=== PATIENT | female | born 1935 | race Hispanic/Latino ===

== ENCOUNTER 2017-11-25 12:42 | Emergency (ER) | payer MEDICARE ==
[2017-11-25 13:04] VITALS: RESP 18; TEMP 97.5; O2SAT 97
--- NOTE | 2017-11-25 14:34 | ED PDOC ---
HPI: Trauma/Fall - HPI Time Seen by Provider: 11/25/17 13:25 Chief Complaint (Nursing): Rib Injury Chief Complaint (Provider): Rib Injury History Per: Patient History/Exam Limitations: no limitations Injury Occurred (Timing): Days Ago: (x6) Additional Complaint(s): 81 year old female with medical history of hypertension and diabetes, presents to the emergency department for an evaluation of worsening right-sided rib pain , under the breast, status post falling down 3 steps in the basement as she was doing laundry 6 days ago. She denied any dizziness, shortness of breath, bloody cough, weakness, numbness, vomiting or use of blood thinners. Patient also reported hitting the back of her head during the fall. PMD: Shukri Alvarez MD Past Medical History Reviewed: Historical Data, Nursing Documentation, Vital Signs Vital Signs: Last Vital Signs Temp 97.5 F L 11/25/17 12:58 Pulse 82 11/25/17 15:45 Resp 18 11/25/17 15:45 BP 134/85 11/25/17 15:45 Pulse Ox 97 11/25/17 15:39 - Medical History PMH: Diabetes, Fractures, HTN - Surgical History Surgical History: Denies: No Surg Hx Other surgeries: right arm - Family History Family History: States: Unknown Family Hx - Social History Current smoker - smoking cessation education provided: No Alcohol: None Drugs: Denies - Home Medications Home Medications: Ambulatory Orders Medication Instructions Recorded Ibuprofen [Motrin Tab] 600 mg PO Q6 PRN #15 tab 11/25/17 - Allergies Allergies/Adverse Reactions: Allergies Allergy/AdvReac Type Severity Reaction Status Date / Time No Known Allergies Allergy Verified 11/25/17 12:57 Review of Systems ROS Statement: Except As Marked, All Systems Reviewed And Found Negative Cardiovascular: Positive for: Other (right-sided rib pain) Respiratory: Negative for: Shortness of Breath, Hemoptysis Gastrointestinal: Negative for: Vomiting Neurological: Negative for: Weakness, Numbness, Dizziness (or syncope) Physical Exam - Reviewed Nursing Documentation Reviewed: Yes Vital Signs Reviewed: Yes - Physical Exam Appears: Positive for: No Acute Distress Head Exam: Positive for: ATRAUMATIC, NORMAL INSPECTION, NORMOCEPHALIC Skin: Positive for: Normal Color Eye Exam: Positive for: Normal appearance, EOMI, PERRL ENT: Positive for: Normal ENT Inspection Neck: Positive for: Normal Cardiovascular/Chest: Positive for: Other (right anterior rib, mid-axillary tenderness, under right breast). Negative for: Chest Non Tender, Edema (or ecchymosis) Respiratory: Positive for: Normal Breath Sounds. Negative for: Decreased Breath Sounds, Wheezing, Respiratory Distress, Other (subcutaneous emphysema) Extremity: Positive for: Normal ROM (upper/lower). Negative for: Pedal Edema ( bilateral), Deformity (upper/lower) - ECG ECG: Positive for: Interpreted By Me ECG Rhythm: Positive for: Sinus Rhythm, Nonspecific Changes Interpretation Of ECG: L axis 1 deg AV block Rate: 74 O2 Sat by Pulse Oximetry: 97 (RA) Pulse Ox Interpretation: Normal Medical Decision Making Medical Decision Making: Initial Impression: Trauma injury Differential Diagnosis: Rib fracture; Cervical spine fracture; Intracranial hemorrhage Initial Plan: * CT cervical spine without contrast * CT chest without contrast * CT head without contrast Time: 1504 --CT C-Spine FINDINGS: VERTEBRAE: No fracture. Normal alignment. No destructive bony lesion. DISCS/SPINAL CANAL/NEURAL FORAMINA: No significant central canal or neural foraminal stenosis. Mild degenerative changes primarily mid lower cervical disc space narrowing. PARASPINAL SOFT TISSUES: Unremarkable. OTHER FINDINGS: Enlarged thyroid gland bilaterally right larger than left containing incompletely visualize thyroid nodules. Elective thyroid ultrasound advised. IMPRESSION: No acute findings related to/accounting for the clinical presentation. Additional benign and/or incidental findings described above. Time: 1510 --CT Chest FINDINGS: LUNGS: Clear lungs. Visualized airway clear. MEDIASTINUM: Unremarkable thoracic aorta. No aneurysm. Cardiomegaly. No evidence of acute, significant cardiovascular disease. Main pulmonary artery unremarkable. No vascular congestion. No lymphadenopathy. PLEURA: No pleural fluid. No pneumothorax. BONES: Healed ventrolateral right 5th rib fracture. No underlying parenchymal or pleural abnormalities. The chest wall/ breast abnormalities of an acute nature. UPPER ABDOMEN: Simple cyst left hepatic lobe 4.5 x 5.2 cm. Additional smaller cysts identified in the liver 5 mm to 2.5 cm OTHER FINDINGS: Enlargement of the thyroid particularly right lobe and isthmus with multiple nodules incompletely characterized. Thyroid ultrasound advised electively for further evaluation IMPRESSION: No acute findings related to/accounting for the clinical presentation. Enlarged abnormal thyroid which requires further elective thyroid ultrasound. Additional benign and/or incidental findings described above. Time: 1515 --CT Head FINDINGS: HEMORRHAGE: No intracranial hemorrhage. BRAIN: No mass effect or edema. Cortical and cerebellar atrophy, periventricular small vessel disease. Old left basal ganglia infarct. VENTRICLES: Unremarkable. No hydrocephalus. CALVARIUM: Unremarkable. PARANASAL SINUSES: Unremarkable as visualized. No significant inflammatory changes. MASTOID AIR CELLS: Unremarkable as visualized. No inflammatory changes. OTHER FINDINGS: None. IMPRESSION: No acute intracranial abnormalities. No significant findings to account for the clinical presentation. No significant interval change compared to the prior examination(s). BP normalized on own. thyroid imaging d/w patient and family member. they state thyroid was evaluated last year by PMD. Rx motrin, take deep breaths, followup PMD if symptoms persist for further testing Scribe Attestation: Documented by Candi Lopez, acting as a scribe for Inocencio King III, DO. Provider Scribe Attestation: All medical record entries made by the Scribe were at my direction and personally dictated by me. I have reviewed the chart and agree that the record accurately reflects my personal performance of the history, physical exam, medical decision making, and the department course for this patient. I have also personally directed, reviewed, and agree with the discharge instructions and disposition. Disposition - Clinical Impression Clinical Impression: Chest wall pain, Head injury - Patient ED Disposition Is Patient to be Admitted: No Counseled Patient/Family Regarding: Studies Performed, Diagnosis, Need For Followup, Rx Given - Disposition Referrals: Shukri Day MD [Family Provider] - Disposition: Routine/Home Disposition Time: 15:00 Condition: STABLE Additional Instructions: Recommend followup with PMD for ultrasound of thyroid gland. Return to ER for any worse or new symptoms. Prescriptions: Ibuprofen [Motrin Tab] 600 mg PO Q6 PRN #15 tab PRN Reason: Pain, Moderate (4-7) Instructions: Closed Head Injury, Contusion (DC), Bruised Rib (DC) Forms: [employer] ([place])
--- NOTE | 2017-11-25 15:05 | CT ---
PROCEDURE: CT Cervical Spine without contrast HISTORY: Trauma COMPARISON: None available. TECHNIQUE: Axial computed tomography images were obtained of the cervical spine without the use of intravenous contrast. Coronal and sagittal reformatted images were created and reviewed. Radiation dose: Total exam DLP = 499.24 mGy-cm. This CT exam was performed using one or more of the following dose reduction techniques: Automated exposure control, adjustment of the mA and/or kV according to patient size, and/or use of iterative reconstruction technique. FINDINGS: VERTEBRAE: No fracture. Normal alignment. No destructive bony lesion. DISCS/SPINAL CANAL/NEURAL FORAMINA: No significant central canal or neural foraminal stenosis. Mild degenerative changes primarily mid lower cervical disc space narrowing. PARASPINAL SOFT TISSUES: Unremarkable. OTHER FINDINGS: Enlarged thyroid gland bilaterally right larger than left containing incompletely visualize thyroid nodules. Elective thyroid ultrasound advised. IMPRESSION: No acute findings related to/accounting for the clinical presentation. Additional benign and/or incidental findings described above.
--- NOTE | 2017-11-25 15:12 | CT ---
PROCEDURE: CT Chest without contrast HISTORY: fall R rib /chest pain COMPARISON: None. TECHNIQUE: Contiguous axial images were obtained through the chest without intravenous contrast enhancement. Sagittal and coronal reconstructions were performed. Radiation dose (DLP): mGy-cm. This CT exam was performed using one or more of the following dose reduction techniques: Automated exposure control, adjustment of the mA and/or kV according to patient size, and/or use of iterative reconstruction technique. FINDINGS: LUNGS: Clear lungs. Visualized airway clear. MEDIASTINUM: Unremarkable thoracic aorta. No aneurysm. Cardiomegaly. No evidence of acute, significant cardiovascular disease. Main pulmonary artery unremarkable. No vascular congestion. No lymphadenopathy. PLEURA: No pleural fluid. No pneumothorax. BONES: Healed ventrolateral right 5th rib fracture. No underlying parenchymal or pleural abnormalities. The chest wall/ breast abnormalities of an acute nature. UPPER ABDOMEN: Simple cyst left hepatic lobe 4.5 x 5.2 cm. Additional smaller cysts identified in the liver 5 mm to 2.5 cm OTHER FINDINGS: Enlargement of the thyroid particularly right lobe and isthmus with multiple nodules incompletely characterized. Thyroid ultrasound advised electively for further evaluation IMPRESSION: No acute findings related to/accounting for the clinical presentation. Enlarged abnormal thyroid which requires further elective thyroid ultrasound. Additional benign and/or incidental findings described above.
--- NOTE | 2017-11-25 15:16 | CT ---
PROCEDURE: CT HEAD WITHOUT CONTRAST. HISTORY: r/o ICH COMPARISON: 10/18/2012 TECHNIQUE: Axial computed tomography images were obtained through the head/brain without intravenous contrast. Coronal and sagittal reconstructed images. Radiation dose: Total exam DLP = 755.48 mGy-cm. This CT exam was performed using one or more of the following dose reduction techniques: Automated exposure control, adjustment of the mA and/or kV according to patient size, and/or use of iterative reconstruction technique. FINDINGS: HEMORRHAGE: No intracranial hemorrhage. BRAIN: No mass effect or edema. Cortical and cerebellar atrophy, periventricular small vessel disease. Old left basal ganglia infarct. VENTRICLES: Unremarkable. No hydrocephalus. CALVARIUM: Unremarkable. PARANASAL SINUSES: Unremarkable as visualized. No significant inflammatory changes. MASTOID AIR CELLS: Unremarkable as visualized. No inflammatory changes. OTHER FINDINGS: None. IMPRESSION: No acute intracranial abnormalities. No significant findings to account for the clinical presentation. No significant interval change compared to the prior examination(s).
[2017-11-25 15:46] VITALS: BP 134/85
[2017-11-27 16:11] VITALS: PULSE 74
== END 2017-11-25 16:12 | disposition home or self-care (01) ==
LOC: H.ER 12:42
DX: S09.90XA Unspecified injury of head, initial encounter (principal); R07.89 Other chest pain; W10.9XXA Fall (on) (from) unspecified stairs and steps, initial encounter; Y92.89 Other specified places as the place of occurrence of the external cause; E11.9 Type 2 diabetes mellitus without complications; I10 Essential (primary) hypertension